=== PATIENT | female | born 1975 | race Caucasian/White ===

== ENCOUNTER → 2016-08-25 | Outpatient (CLI) | payer BC ==
--- NOTE | 2016-08-25 15:59 | KCIC ---
PROCEDURE MR of the left knee HISTORY Left knee pain for 2 months. No known injury. Medial and anterior pain. COMPARISON None TECHNIQUE Standard noncontrast images are obtained. FINDINGS Tear at the posterior root of the medial meniscus. There is some extrusion of the medial meniscus from the joint compartment. No evidence of a lateral meniscal tear Anterior and posterior cruciate ligaments are intact. Mild fluid tracking along the medial collateral ligament but no evidence of intrinsic tear or laxity. Iliotibial band unremarkable Fibular collateral ligament, biceps femoris tendon and popliteus are intact Extensor mechanism intact Large joint effusion No apparent loose body Mild subchondral marrow edema at the medial joint may be degenerative/reactive. Severe chondromalacia at the medial joint compartment Mild to moderate patellofemoral chondromalacia. There is mild soft tissue edema around the knee IMPRESSION 1. Tear at the posterior root attachment of the medial meniscus. 2. Primary osteoarthritis, severe at the medial joint compartment. 3. Large joint effusion. Electronically signed by: Jose Gimenez MD (Aug 25, 2016 15:57:37)
== END | disposition home or self-care (01) ==
LOC: KCIC MRI 14:31
PROVIDERS: ATTEND Orthopaedic Surgery Adult Reconstructive Orthopaedic Surgery
DX: M25.562 Pain in left knee (principal)
CPT/HCPCS: 73721

== ENCOUNTER → 2017-03-25 | Outpatient (CLI) | payer BC ==
[~2017-03-25] MED LIST: ATOR10TA60 PO; DICL75TA PO; ENAL20TA PO; FLUO40CA2 PO; HYDR25TA9 PO; IOHEXOL 240 MG/ML 50ML VIAL. PO ONE; IOHEXOL 300 MG/ML 100ML VIAL. IV ONE; METF500T4 PO; PANT40TA5 PO; RANI150C PO
--- NOTE | 2017-03-25 11:19 | KCIC ---
Indication: Right lower quadrant pain radiating into back. Pain is mostly postprandial. Partial hysterectomy. Cholecystectomy. Symptoms for 2 weeks. Technique: Axial images and coronal and sagittal reformatted images are provided. Oral contrast and 100 mL of intravenous Omnipaque 300 was administered without complication. No comparison is available. One or more of the following individualized dose reduction techniques were utilized for this examination: 1. Automated exposure control 2. Adjustment of the mA and/or kV according to patient size 3. Use of iterative reconstruction technique Findings: The lung bases are clear. There is no pleural effusion. The heart is not enlarged. There is mild fatty infiltration of the liver. Gallbladder is absent. Spleen is not enlarged. Pancreas and adrenals are unremarkable. Aorta is normal caliber. Kidneys are symmetrically perfused. Subcentimeter probable cyst in the interpolar left kidney anteriorly is too small to characterize. There is probably a small hiatal hernia. There is no small bowel obstruction or mural thickening. Normal appendix is noted. There are a few diverticula in the sigmoid colon but no findings of a diverticulitis. Small fat-containing umbilical hernia is noted. No significant mesenteric or retroperitoneal adenopathy is apparent. Bladder is unremarkable. Uterus is reported as surgically absent. Right ovarian tissue is not definitely visualized. Left ovary is slightly enlarged with a probable cyst or follicle measuring 3 cm. There is no free pelvic fluid. There are degenerative changes in the spine which are mostly mild although at L5-S1 there is mild to moderate degenerative change with endplate sclerosis, disc osteophyte complex and facet hypertrophy. Right greater than left foraminal narrowing is noted. IMPRESSION: 1. No acute abdominal findings. 2. Fatty infiltration of the liver. 3. Small hiatal hernia. 4. Diverticulosis in the colon without findings of diverticulitis. 5. Probable cyst or follicle in the left ovary measures 3 cm, if further imaging is warranted consider 12 week follow-up pelvic ultrasound. Electronically signed by: Regan Garcia MD (03/25/2017 11:16 AM) [id number]
== END | disposition home or self-care (01) ==
LOC: KCIC CT 07:52
PROVIDERS: ATTEND Family Medicine
DX: K57.30 Diverticulosis of large intestine without perforation or abscess without bleeding (principal); K44.9 Diaphragmatic hernia without obstruction or gangrene; K76.0 Fatty (change of) liver, not elsewhere classified; Z90.49 Acquired absence of other specified parts of digestive tract
CPT/HCPCS: 74177; 82565; Q9966; Q9967

== ENCOUNTER → 2019-02-21 | Outpatient (CLI) | payer BC ==
[~2019-02-21] MED LIST changes: +HYDR-2145 PO; -HYDR25TA9 PO; -IOHEXOL 240 MG/ML 50ML VIAL. PO ONE; -IOHEXOL 300 MG/ML 100ML VIAL. IV ONE; +METF500T16 PO; -METF500T4 PO; -PANT40TA5 PO; +PANT40TA77 PO
--- NOTE | 2019-02-21 15:45 | KCIC ---
3 views of the right foot without comparison for right foot pain. Pain since December, no known injury, hurts to bear weight. FINDINGS: There is no fracture, dislocation, or acute osseous abnormality. Joints and soft tissues are grossly unremarkable. No radiopaque foreign bodies are seen. IMPRESSION: 1. No acute osseous abnormality. Electronically signed by: Charli Wright MD (02/21/2019 3:42 PM) [facility]
== END | disposition home or self-care (01) ==
LOC: KCIC 09:28
PROVIDERS: ATTEND Nurse Practitioner Gerontology
DX: M79.671 Pain in right foot (principal)
CPT/HCPCS: 73630

== ENCOUNTER → 2020-06-10 | Outpatient (CLI) | payer BC ==
[~2020-06-10] MED LIST changes: -ENAL20TA PO; +ENAL20TA10 PO
--- NOTE | 2020-06-10 16:00 | RAD ---
Exam: Right Upper Quadrant Ultrasound 06/10/2020 3:23 PM Indication: Reason: ruq pain / Spl. Instructions: / History: Technique: Multiple realtime grayscale sonographic images were obtained over the abdomen. Static imag es were submitted for interpretation. Comparisons: CT of the abdomen and pelvis March 25, 2017 Findings: Visualized portions of the pancreas are unremarkable. Visualized IVC and aorta are unremarkable. The liver is markedly enlarged measuring an estimated 25 cm longitudinally. This is in contrast with [facility] where the liver was normal in size. Portions of the liver completely obscured and not ev aluated by ultrasound. The common bile duct measures 1.3 cm in diameter which is nonspecific given pr ior removal of gallbladder. This is more prominent than on prior CT study. Right kidney is poorly vis ualized measures approximately 11.5 cm longitudinally. No focal renal abnormality is identified. The spleen is mildly enlarged measuring 13 cm longitudinally. The left kidney is unremarkable measuring 1 3 cm longitudinally. IMPRESSION: 1. Hepatomegaly, new since comparison exam from 2017. Evaluation of the liver is otherwise limited. 2. Prominence of the common bile duct, nonspecific given prior removal of gallbladder. Consider labor atory correlation for evidence of biliary obstruction. Electronically signed by: Anthony Handy MD (06/10/2020 3:58 PM) [id number]
== END ==
LOC: US 15:03
PROVIDERS: ATTEND Family Medicine
DX: R16.0 Hepatomegaly, not elsewhere classified (principal)
CPT/HCPCS: 76700

== ENCOUNTER → 2020-06-23 | Outpatient (CLI) | payer BC ==
[~2020-06-23] MED LIST changes: +CONTRAST GIVEN. MC PRN; +IOHEXOL 240 MG/ML 50ML VIAL. PO ONE; +IOHEXOL 300 MG/ML 100ML VIAL. IV ONE
--- NOTE | 2020-06-23 11:53 | KCIC ---
EXAM: Abdomen and pelvis CT with intravenous contrast. HISTORY: Hepatomegaly. Pain. TECHNIQUE: Computed tomographic images of the abdomen and pelvis were obtained following the administ ration of intravenous contrast. Multiplanar reformatting was performed. *One or more of the following individualized dose reduction techniques were utilized for this examina tion: 1. Automated exposure control. 2. Adjustment of the mA and/or kV according to patient size. 3. Use of iterative reconstruction technique. COMPARISON: 03/25/2017. FINDINGS: Evaluation of the lower thorax is unremarkable. There is hepatomegaly and hepatic steatosis . No focal hepatic lesion is seen. The gallbladder is surgically absent. The pancreas, spleen, adrena l glands and stomach are unremarkable. There is no suspicious renal lesion or hydronephrosis. There i s a tiny cyst within the anterior lower mid zone of the left kidney. There is no appendicitis. There is no bowel obstruction. There is colonic diverticulosis. There is no diverticulitis. There is an infraumbilical hernia to right of midline extending into an abdominal wall pannus which c ontains fat and a small portion of sigmoid colon. The hernia defect measures approximately 1.7 cm and the hernia sac measures 8.0 cm. There is a larger hernia within a ventral abdominal wall pannus exte nding to left of midline containing fat and a segment of sigmoid colon. This hernia defect measures a pproximately 2.7 cm and the hernia sac measures approximately 12.0 cm. There is no evidence of bowel incarceration. The bladder is nearly empty. The uterus is surgically absent. There is a complex cystic lesion or mul tiple adjacent cysts involving the left ovary. The largest cystic component measures 4.0 cm. The righ t ovary is not seen and may be absent. There is no lymphadenopathy. There is no suspicious osseous le selina. There are degenerative changes primarily at the lumbosacral junction. IMPRESSION: 1. Hepatomegaly and hepatic steatosis. No focal hepatic lesion is seen. 2. Infraumbilical ventral abdominal wall hernias to the right and left of midline containing fat and segments of sigmoid colon, increased compared to the prior exam and described in detail above. There is no evidence of bowel incarceration or mechanical obstruction 3. Complex cystic lesion or multiple cysts involving the left ovary, increased compared to the prior study dated 03/25/2017. Pelvic sonography and correlation with a CA-125 serum tumor marker level is r ecommended. 4. Colonic diverticulosis. 5. Tiny left renal cyst. Follow-up is not routinely recommended for simple renal cysts. Electronically signed by: Kiki Ngo MD (06/23/2020 11:51 AM) [id number]
== END ==
LOC: KCIC CT 10:21
PROVIDERS: ATTEND Family Medicine
DX: K57.30 Diverticulosis of large intestine without perforation or abscess without bleeding (principal); R16.0 Hepatomegaly, not elsewhere classified; K76.0 Fatty (change of) liver, not elsewhere classified; N28.1 Cyst of kidney, acquired
CPT/HCPCS: 74177; Q9966; Q9967